=== PATIENT | male | born 1950 | race Caucasian/White ===

== ENCOUNTER 2019-11-03 09:29 | Emergency (ER) | payer OTHER ==
[2019-11-03 09:39] VITALS: BMI 33.9
[2019-11-03] MEDS ORDERED: ALBUTEROL SO4 2.5/IPRATROPIUM 0.5 INH SOL 3 ML VIAL.NEB. NEB ONE ×3 (10:00→10:34)
--- NOTE | 2019-11-03 10:09 | PDOC ---
History of Present Illness - General Chief Complaint: Respiratory Stated Complaint: DIFFICULTY BREATHING Time Seen by Provider: 11/03/19 09:43 History Source: Patient Exam Limitations: No Limitations Past History - Past Medical History Allergies/Adverse Reactions: Allergies Allergy/AdvReac Type Severity Reaction Status Date / Time No Known Allergies Allergy Verified 11/03/19 09:38 Home Medications: Ambulatory Orders Albuterol 0.083% Nebulizer Shital [Ventolin 0.083% Nebulizer Soln -] 1 neb NEB Q4H PRN #30 vial 11/03/19 Nebulizer and Compressor [Portable Nebulizer System] 1 each ASDIR #1 each 03/18 predniSONE [Deltasone -] 40 mg PO DAILY #8 tablet 11/03/19 COPD: No HTN: Yes - Psycho Social/Smoking Cessation Hx Smoking History: Never smoked Have you smoked in the past 12 months: No Hx Alcohol Use: No Substance Use Type: None *Physical Exam - Vital Signs Last Vital Signs Temp Pulse Resp BP Pulse Ox 98.1 F 79 20 109/66 99 11/03/19 09:36 11/03/19 09:36 11/03/19 09:36 11/03/19 09:36 11/03/19 09:36 - Physical Exam General Appearance: No: Apparent Distress HEENT: negative: Nasal Congestion, Rhinorrhea Respiratory/Chest: positive: Wheezing (mild minimal expiratory wheeze). negative: Respiratory Distress, Accessory Muscle Use, Labored Respiration Cardiovascular: positive: Regular Rhythm, Regular Rate, S1, S2. negative: Murmur Gastrointestinal/Abdominal: positive: Normal Bowel Sounds, Soft. negative: Tender, Distended, Guarding, Rebound Extremity: negative: Coldness, Pedal Edema, Swelling Integumentary: positive: Normal Color Neurologic: positive: Alert ED Treatment Course - RADIOLOGY Radiology Studies Ordered: Category Date Time Status CHEST PA & LAT [RAD] Stat Radiology 11/03/19 10:00 Ordered Medical Decision Making - Medical Decision Making 69 y/o M hx of HTN, asthma, former smoker (quit 20 years ago, smoked for 7 years , 1 pack/week) presents with dry cough x 5 days along with chest tightness and SOB. Patient's girlfriend with similar symptoms. Denies fever, throat pain, ear pain, abd pain, n/v, leg swelling, calf pain, recent travel. ?asthma exacerbation Plan: duoneb trial, cxr, reassess 11/03/19 10:07 patient feeling much better on reassessment lungs cta B/L CXR negative stable for dc 11/03/19 11:31 Discharge - Discharge Information Problems reviewed: Yes Clinical Impression/Diagnosis: Asthma Qualifiers: Asthma severity: mild Asthma persistence: unspecified Asthma complication type : with acute exacerbation Qualified Code(s): J45.901 - Unspecified asthma with ( acute) exacerbation Condition: Improved Disposition: HOME - Admission No - Additional Discharge Information Prescriptions: Albuterol 0.083% Nebulizer Shital [Ventolin 0.083% Nebulizer Soln -] 1 neb NEB Q4H PRN #30 vial PRN Reason: Shortness Of Breath Nebulizer and Compressor [Portable Nebulizer System] 1 each MC ASDIR #1 each predniSONE [Deltasone -] 40 mg PO DAILY #8 tablet Prescription Drug Monitoring Program (I-STOP) results: I-STOP not reviewed - Follow up/Referral - Patient Discharge Instructions Patient Printed Discharge Instructions: DI for Asthma -- Adult Additional Instructions: Thank you for choosing [facility]. It was a pleasure taking care of you. Please take medications as prescribed Follow-up with your doctor in 2 days Return to the Emergency Department if your symptoms worsen or persist, you have fever, shortness of breath, chest pain or other concerning symptoms. - Post Discharge Activity
[2019-11-03] MEDS ORDERED: predniSONE 20 MG TABLET (UD) PO ONE (10:28)
[2019-11-03] MEDS: ALBUTEROL SO4 2.5/IPRATROPIUM 0.5 INH SOL 3 ML VIAL.NEB. NEB SCH ×2 (10:30→10:43)
[2019-11-03] MEDS ORDERED: predniSONE 20 MG TABLET (UD) ONE (10:34)
[2019-11-03 11:56] VITALS: BP 104/64; PULSE 74; TEMP 98
== END 2019-11-03 11:57 | disposition home or self-care (01) ==
LOC: JER 09:29
PROC: 3E0F7GC Introduction of Other Therapeutic Substance into Respiratory Tract, Via Natural or Artificial Opening (ICD-10-PCS; principal; 2019-11-03)
PROC: 3E0F7GC Introduction of Other Therapeutic Substance into Respiratory Tract, Via Natural or Artificial Opening (ICD-10-PCS; 2019-11-03)
DX: J45.901 Unspecified asthma with (acute) exacerbation (principal); I10 Essential (primary) hypertension; Z87.891 Personal history of nicotine dependence
CPT/HCPCS: 71046-TC-FY; 94640; 99282-25